=== PATIENT | female | born 1995 | race Caucasian/White ===

== ENCOUNTER → 2021-04-10 | Outpatient (CLI) | payer OTHER ==
[~2021-04-10] MED LIST: IBUPROFEN600 MG PO
== END ==
LOC: RAD 12:53
DX: M79.675 Pain in left toe(s) (principal); M79.89 Other specified soft tissue disorders
CPT/HCPCS: 73630

== ENCOUNTER 2021-08-05 14:28 | Emergency (ER) | payer OTHER ==
[2021-08-05] MEDS ORDERED: ZOFRAN4 MG PO (16:32)
[2021-08-05] MEDS ORDERED: BENTYL 20MG TAB20 MG PO (16:32)
== END 2021-08-05 16:50 | disposition home or self-care (01) ==
LOC: ER1 14:28
DX: B34.9 Viral infection, unspecified (principal); J45.909 Unspecified asthma, uncomplicated; Z88.8 Allergy status to other drugs, medicaments and biological substances; Z20.822 Contact with and (suspected) exposure to COVID-19
CPT/HCPCS: 99284; U0002

== ENCOUNTER → 2021-10-14 | Outpatient (CLI) | payer OTHER ==
[~2021-10-14] MED LIST changes: +BENTYL 20MG TAB20 MG PO; +ZOFRAN4 MG PO
== END ==
LOC: RAD 10:48
DX: K59.00 Constipation, unspecified (principal)
CPT/HCPCS: 74018